=== PATIENT | female | born 1950 | race Caucasian/White ===

== ENCOUNTER → 2016-12-05 | Day surgery (SDC) | payer MEDICARE ==
[~2016-12-05] VITALS: Ht 154.9 cm; Wt 137.6 kg
[~2016-12-05] MED LIST: ACETAMINOPHEN 1000 MG/100 ML 100 ML IV ONE; DEXAMETHASONE SOD PHOS 4 MG/ML VIAL IV ONE; ISOSULFAN BLUE 50 MG/5 ML VIAL SQ ONE; LACTATED RINGER'S 1000 ML INJ 1,000 ML ONE; LIDOCAINE 1.5%/EPINEPHrine 1:200,000 PF SOLN 30 ML AMP ONE; LIDOCAINE HCL 1% PF 5 ML AMPULE OTHER ONE; MIDAZOLAM HCL 2 MG/2 ML VIAL ONE; ONDANSETRON HCL 4 MG/2 ML VIAL IV PUSH ONE; PROPOFOL 200 MG/20 ML AMP IV ONE; SODIUM CHLOR 0.9% 250 ML INJ 250 ML IV ONE; VANCOMYCIN HCL 1000 MG VIAL ONE; ceFAZolin INJ 1,000 MG VIAL ONE; ePHEDrine/NS 25 MG/5 ML SYR IV ONE
--- NOTE | 2016-12-08 10:36 | MP ---
cc: TRUDY BERMAN M.D. DATE OF SURGERY: 12/05/2016 PROCEDURE 1. Injection Lymphazurin blue dye. 2. Intraoperative localization and excision of sentinel lymph nodes left axilla x2, excision of nonsentinel node x1. 3. Needle-localized wide local excision of left breast with additional inferior margin excised. PREOPERATIVE DIAGNOSIS Invasive ductal carcinoma of the left breast. POSTOPERATIVE DIAGNOSIS Invasive ductal carcinoma of the left breast. ANESTHESIA LMA. SURGEON Dr. Berman. REHABILITATION CENTER MANAGER ARNOLDO Berman ESTIMATED BLOOD LOSS 30 mL. FLUIDS 1050 mL crystalloid. COMPLICATIONS None. DRAINS None. SPECIMEN 1. Left axillary sentinel nodes x2 and nonsentinel node x1. 2. Left breast needle-localized tissue with additional margin to pathology. PROCEDURE IN DETAIL The patient was taken to the department of radiology where she underwent needle localization procedure and injection of the breast with technetium 99 sulfur colloid. The patient was taken back down to the nuclear medicine department and re-imaged; however, no sentinel nodes were identified in this patient. She then had the left breast marked by the undersigned and confirmed by the patient and was taken to the operating room. Laryngeal mask anesthesia was instituted. The ASSEMBLY LEADER was present for the entirety of the case. Her presence was required for mobilization, exposure, and resection of important structures. She assisted in all aspects of the case. The left breast was prepped and retroareolar and peritumoral injections were made with Lymphazurin blue dye. The breast was gently compressed for 2-3 minutes and following this the entire breast reprepped and draped. Time-out was taken confirming correct patient, site and procedures to be performed. Dissection was carried out in the axilla and probe was utilized after injecting around the tumor with local anesthetic to help push the radiotracer into the axilla. Examination utilizing the navigator probe and blue dye demonstrated a large blue lymph node which had activity substantially above background. This was excised and careful examination of the axilla revealed a second node. This one had minimal blue dye within it, but had counts substantially above background. These were both submitted as sentinel nodes. A very small node was located in between these two and this was removed during the dissection. This had no activity above background and was submitted as a nonsentinel lymph node. The wound was reexamined and bleeding point made hemostatic with electrocautery. When this had been completed the wound was closed with interrupted 3-0 Vicryl suture and 5-0 PDS in a running subcuticular fashion. This was toweled off and the breast was addressed. A circumareolar incision was made midway between the needle insertion site and the nipple-areolar complex from approximately the 12 o'clock to the 3 o'clock position on the breast. Dissection was carried out superiorly and laterally to the needle which was cut at the skin and brought into the wound. The breast had a spherical piece of tissue removed with the needle and submitted for specimen analysis. There was some additional tissue inferiorly that was somewhat closer to the needle and so an additional inferior margin was taken and marked with silk suture. While awaiting specimen imaging, the wound was made hemostatic with electrocautery. Radiology called and confirmed that the lesion was present within the specimen. It was also indicated that this was essentially in the center of the specimen. However, the additional inferior margin was taken as the tissue appeared to be breast tissue that could possibly be neoplastic and thus, it was taken. This additional new margin was marked with the new inferior margin with a Silk stitch. After the specimen had been oriented and had been reported to have the lesion within it, the wound was closed with interrupted 3-0 Vicryl suture and 5-0 PDS in a running subcuticular fashion. The wound was dressed with Steri-Strips and the patient was taken back to the recovery room in stable condition. Sponge, needle and instrument counts were reported to be correct x2. MD AJ Fung/THEO /9:58 AM /10:11 AM BETHANY
== END | disposition home or self-care (01) ==
LOC: ESDC 06:08
PROVIDERS: ATTEND Surgery Trauma Surgery
DX: C50.912 Malignant neoplasm of unspecified site of left female breast (principal)
CPT/HCPCS: 00400; 01610; 19125; 38525; 38792; 88307; J0131; J0690; J2250; J2405; J3010; J3370; J7050; J7120; Q9968; J1100